=== PATIENT | male | born 1965 | race African-American/Black ===

== ENCOUNTER 2023-01-02 08:12 | Emergency (ER) | payer BC ==
[~2023-01-02] VITALS: Ht 175.3 cm; Wt 98.0 kg
[2023-01-02 08:19] VITALS: O2SAT 100
[2023-01-02] MEDS ORDERED: KETOROLAC 30MG/ML VIAL IV STA (10:00)
[2023-01-02] MEDS ORDERED: SODIUM CHLORIDE 0.9% 1,000 ML IV ONE (10:00)
[2023-01-02] MEDS ORDERED: MORPHINE SULFATE 4 MG/ML CPJ (NOT FOR IM USE) IV STA (10:00)
[2023-01-02] MEDS ORDERED: ONDANSETRON HCL 4MG/2ML INJ IV STA (10:00)
[2023-01-02 11:09] LABS: BASOPHILS % 0.3 % (0.0-2.0); EOSINOPHILS % 0.3 % (0.0-5.0); HEMATOCRIT. 43.4 % (42.0-52.0); HEMOGLOBIN. 14.5 g/dL (14.0-18.0); LYMPHOCYTES % 10.4 % (20.0-50.0); MEAN CORPUSCULAR HEMOGLOBIN 30.7 pg (28.0-32.0); MEAN CORPUSCULAR HGB CONC 33.4 g/dL (31.0-37.0); MEAN CORPUSCULAR VOLUME 91.8 fL (80.0-94.0); MEAN PLATELET VOLUME 7.7 fl (7.4-10.4); MONOCYTES % 6.9 % (2.0-8.0); NEUTROPHILS % 82.1 % (40.0-76.0); PLATELET 238 x1000/uL (130-400); RED BLOOD CELL COUNT 4.73 mill/uL (4.7-6.1); WHITE BLOOD COUNT 9.5 x1000/uL (4.5-11.0)
[2023-01-02 11:15] LABS: CHLORIDE 109 mEq/L (98-107); INDEX HEMOLYSI 1 (1-3); INDEX ICTERIC 1 (1-4); INDEX LIPEMIC 1 (1-3); POTASSIUM 3.9 mEq/L (3.5-5.1); SODIUM 139 mEq/L (136-145)
[2023-01-02 11:23] LABS: ALANINE AMINOTRANSFERASE 44 IU/L (13-61); ALBUMIN 4.1 g/dL (3.4-5.0); ASPARTATE AMINOTRANSFERASE 21 IU/L (15-37); BILIRUBIN TOTAL 0.5 mg/dL (0.1-1.0); CALCIUM 8.7 mg/dL (8.5-10.1); CARBON DIOXIDE 27 mEq/L (21-32); CREATININE 1.4 mg/dL (0.6-1.3); GLUCOSE 143 mg/dL (70-105); PROTEIN TOTAL 7.7 g/dL (6.0-8.3); UREA NITROGEN BLOOD 14 mg/dL (7-21)
[2023-01-02] MEDS ORDERED: ONDA4TAB11 PO (13:05)
[2023-01-02] MEDS ORDERED: CEPH500C2 MT (13:05)
[2023-01-02] MEDS ORDERED: IBUP-2029 MT (13:05)
[2023-01-02] MEDS ORDERED: HYDR-4001 MT (13:05)
[2023-01-02] MEDS ORDERED: ONDANSETRON HCL 4MG/2ML INJ IV NR (13:06)
[2023-01-02] MEDS ORDERED: KETOROLAC 30MG/ML VIAL IV NR (13:07)
[2023-01-02 14:05] LABS: CLARITY URINE CLEAR (CLEAR); COLOR URINE YELLOW (YELLOW); GLUCOSE URINE NEGATIVE (NEGATIVE); KETONES URINE NEGATIVE (NEGATIVE); LEUKOCYTE ESTERASE URINE NEGATIVE (NEGATIVE); NITRITE URINE NEGATIVE (NEGATIVE); OCCULT BLOOD URINE 2+ (NEGATIVE); PROTEIN URINE TRACE (NEGATIVE); SPECIFIC GRAVITY URINE 1.025 (1.005-1.030)
[2023-01-02 14:16] VITALS: BP 135/67; PULSE 77; RESP 16; TEMP 98.4
[2023-01-02 14:16] LABS: SQUAMOUS EPITHELIAL CELL URINE RARE /lpf (RARE/1+)
[2023-01-02 14:17] LABS: BACTERIA URINE TRACE; RBC URINE 25-50 /hpf (0-2)
== END 2023-01-02 14:17 | disposition home or self-care (01) ==
LOC: ER 08:12
DX: N20.1 Calculus of ureter (principal)
CPT/HCPCS: 80053; 81003; 83690; 85025; 36415; 71045; 74176; 96361; 96374; 96375; 99285; J1885; J2405; J7030; Z7610